=== PATIENT | female | born 1975 ===

== ENCOUNTER 2018-11-30 12:39 | Outpatient (CLI) | payer OTHER | END 2018-11-30 12:40 | disposition home or self-care (01) | LOC: C.LAB 12:39 | DX: E05.90 Thyrotoxicosis, unspecified without thyrotoxic crisis or storm (principal) ==

== ENCOUNTER 2019-02-06 10:18 | Outpatient (CLI) | payer OTHER | END 2019-02-06 10:19 | disposition home or self-care (01) | LOC: C.LAB 10:18 | DX: E05.90 Thyrotoxicosis, unspecified without thyrotoxic crisis or storm (principal) ==